=== PATIENT | female | born 1980 | race Caucasian/White ===

== ENCOUNTER → 2016-08-22 | Outpatient (CLI) | payer OTHER ==
[~2016-08-22] MED LIST: PRENTAB26 PO
[2016-08-22 18:45] LABS: URINE APPEARANCE CLEAR (CLEAR); URINE COLOR DK YELLOW; URINE EPITHELIAL CELL AUTO >30 /lpf (0-5); URINE NITRITE POS (NEG); URINE SPECIFIC GRAVITY 1.021 (1.000-1.030); UROBILINOGEN NEG (NEG)
[2016-08-22 18:48] LABS: MANUAL MICROSCOPIC REQUIRED? NO; REVIEW REQ? NO
[2016-08-22 18:50] LABS: URINE BILIRUBIN NEG (NEG)
== END | disposition home or self-care (01) ==
LOC: C.LABSPEC 17:47
PROVIDERS: ATTEND Obstetrics & Gynecology
DX: O09.523 Supervision of elderly multigravida, third trimester (principal)

== ENCOUNTER → 2016-09-03 | Outpatient (CLI) | payer OTHER ==
[2016-09-03 18:35] LABS: GTGD 50 Grams
== END | disposition home or self-care (01) ==
LOC: C.LAB1850 16:29
PROVIDERS: ATTEND Obstetrics & Gynecology
DX: O09.523 Supervision of elderly multigravida, third trimester (principal)

== ENCOUNTER → 2016-10-03 | Outpatient (CLI) | payer OTHER | END | disposition home or self-care (01) | LOC: C.LAB 09:45 | PROVIDERS: ATTEND Obstetrics & Gynecology | DX: O28.1 Abnormal biochemical finding on antenatal screening of mother (principal) ==

== ENCOUNTER 2016-11-04 05:06 | Inpatient (IN) | payer OTHER ==
[~2016-11-04] VITALS: Ht 170.2 cm; Wt 91.8 kg
[2016-11-04] MEDS ORDERED: LACTATED RINGER'S 1000ML 1,000 ML IV PRN (05:51)
[2016-11-04] MEDS ORDERED: PENICILLIN G POTASSIUM IV 6 MU in DEXTROSE 5% 250ML 250 ML IV STA (05:56)
[2016-11-04] MEDS ORDERED: PENICILLIN G POTASSIUM IV 3 MU in DEXTROSE 5% 100ML 100 ML IV PRN (06:00)
[2016-11-04] MEDS: LACTATED RINGER'S 1000ML 1,000 ML IV SCH ×2 (06:13→07:05)
[2016-11-04 06:28] VITALS: Ht 170.2 cm; Wt 91.8 kg
[2016-11-04] MEDS ORDERED: PRENTAB26 PO (06:33)
[2016-11-04 06:38] LABS: HEMATOCRIT 34.1 % (37-47); MEAN CELL VOLUME 76.8 fL (80-100); MEAN CORPUSCULAR HEMOGLOBIN 25.7 pg (25-34); MEAN CORPUSCULAR HGB CONC 33.4 g/dl (32-36); MEAN PLATELET VOLUME 11.2 fL (7.4-10.4); PLATELET COUNT 299 K/uL (130-400); RED BLOOD COUNT 4.44 M/uL (4.2-5.4); WHITE BLOOD COUNT 14.31 K/uL (4.8-10.8)
[2016-11-04] MEDS ORDERED: FENTANYL CITRATE INJ 50 MCG/1 ML 2 ML VIAL ONE (06:54)
[2016-11-04] MEDS ORDERED: BUPIVACAINE 0.25% 30 ML VIAL ONE (06:54)
[2016-11-04] MEDS ORDERED: EpHEDrine SULFATE INJ 50 MG/ML AMP ONE (06:54)
[2016-11-04] MEDS ORDERED: FENTANYL 2MCG/ML ROPIV 1.25MG/ML 100ML BAG EPI ONE (06:54)
[2016-11-04] MEDS ORDERED: LACTATED RINGER'S 1000ML 500 ML IV PRN ×2 (07:22→11:30)
[2016-11-04] MEDS ORDERED: DiphenhydrAMINE HCL 50 MG/ML VIAL IV PRN (07:30)
[2016-11-04] MEDS ORDERED: ONDANSETRON INJ 2 MG/ML 2 ML VIAL IV PRN (07:30)
[2016-11-04] MEDS ORDERED: EpHEDrine SULFATE INJ 50 MG/ML AMP IV PRN (07:30)
[2016-11-04] MEDS ORDERED: NALBUPHINE HCL INJ 10 MG/ML AMP IV PRN (07:30)
[2016-11-04] MEDS ORDERED: NALOXONE HCL INJ 0.4 MG/1 ML VIAL/CARP IV PRN (07:30)
[2016-11-04] MEDS ORDERED: FENTANYL 2MCG/ML ROPIV 1.25MG/ML 100ML BAG EPI PRN (07:30)
--- NOTE | 2016-11-04 08:15 | Medical Student: [facility] ---
Med Student History & Physical Date of Service Nov 04, 2016. Chief Complaint "My water broke" History of Present Illness Source: patient, partner, clinic records, hospital records This is a 36 year old at 38 weeks 6 days GA as established by LMP and confirmed by first trimester ultrasound, who presents following rupture of membranes and contractions starting at 3 am today. She reports no acute complaints and says that this has gone well. The only complication reported is gestational diabetes, which she has managed well with diet. She is also GBS positive, and has smoked about a half pack per day during this . She continues to report frequent movement, leakage of fluid, and contractions, but denies any bleeding. Labs: Blood type: A+, negative antibody screen HCT/HGB: 34%/11.7 g/dl Rubella: Immune VDRL/RPR: Nonreactive HBsAg: Negative HIV: Negative Chlamydia: Negative Gonorrhea: Negative 2nd trimester screen: Declined Diabetes screen: Positive GBS: Positive OB History G1: (06/25/2003) at 41 weeks GA of viable female ("Shu") weighing 7 lbs 3 oz. G2: (03/10/2010) at 41 weeks GA of viable female ("Michelle") weighing 7 lbs 3 oz. G3: Current PROJECT ADMIN History Menarche at age 11 with periods occurring every 28 days, lasting for about 5 days with heavier bleeding for the first two days and production technician bleeding for the remainder. LMP 02/06/16. Denies any history of STDs. She has had no abnormal pap smears and her last pap was 03/2016. No reported history of Gynecologic procedures or surgeries. Past Medical History Denies any past medical history prior to . Not taking any medications regularly other than vitamins. Past Surgical History Had leg surgery to reduce a fracture. No other history of surgeries. Family History Unremarkable Social History Smoking Status: Current Every Day Smoker (1/2 pack per day) Alcohol Use: none Drug Use: none Marital Status: in relationship (engaged) Housing status: lives with family, lives with significant other Occupational Status: employed Allergies Coded Allergies: No Known Allergies (Verified , 11/04/16) Home Medications Multivit/Min/Iron/Fol Ac/Pren ( Vitamin), 1 TAB PO DAILY Review of Systems Eyes: No worsening of vision Respiratory: No shortness of breath Cardiovascular: No chest pain Abdomen: No pain Physical Exam General Appearance: WD/WN, no apparent distress Respiratory/Chest: lungs clear, normal breath sounds Cardiovascular: regular rate, rhythm, no murmur Abdomen / GI: non tender, soft, + pertinent finding (gravid) Genitourinary - Female: + pertinent finding (cervix 3 cm dilated, 50% effaced, -3 station) Extremities: no calf tenderness, no pedal edema Neurologic/Psych: alert, oriented x 3 Monitoring External Monitor: baseline 140, moderate variability, accelerations present, no decels noted. Tocodynamometer: contractions every 4-6 minutes Laboratory Results 11/04/16 06:25 Test 11/04/16 06:25 11/04/16 06:28 Red Blood Count 4.44 M/uL (4.2-5.4) Mean Corpuscular Volume 76.8 fL (80-100) Mean Corpuscular Hemoglobin 25.7 pg (25-34) Mean Corpuscular Hemoglobin Concent 33.4 g/dl (32-36) RDW Standard Deviation 40.6 fL (36.4-46.3) RDW Coefficient of Variation 14.4 % (11.5-14.5) Mean Platelet Volume 11.2 fL (7.4-10.4) Bedside Glucose 102 mg/dl (70-90) Assessment and Plan 36 year old , 38 weeks 6 days GA for rupture of membranes. Tracing Category I (HR 140, moderate variability, present accelerations, absent decelerations) who is 3 cm dilated, 50% effaced and -3 station. Patient is in latent stage 1 of labor. Continue external monitoring, start IV penicillin 100 mL/hr Q4hr PRN d/t GSB positive status, epidural in place ( Bupivicaine 30 mL, ephedrine sulfate 50 mg, Fentanyl/Ropivacaine 100 ml, Fentanyl citrate 100 mcg) and continue IV lactated ringers 1000 mL @ 125 mL/hr Q8hr and 1000 mL @ 999 mL/hr Q1H1M PRN .
[2016-11-04] MEDS ORDERED: OXYTOCIN 30 UNITS/500ML NSS IV PRN ×2 (11:30→14:00)
[2016-11-04] MEDS ORDERED: HYDROCORTISONE ACETATE 25 MG SUPP PR PRN (14:00)
[2016-11-04] MEDS ORDERED: IBUPROFEN 600 MG TAB PO PRN (14:00)
[2016-11-04] MEDS ORDERED: ACETAMINOPHEN/CODEINE 300/30MG TAB PO PRN ×2 (14:00)
[2016-11-04] MEDS ORDERED: LANOLIN OINT EXT PRN ×2 (14:00)
[2016-11-04] MEDS ORDERED: BENZOCAINE 20% AER SPR 82.5 GM CAN EXT PRN (14:00)
[2016-11-04] MEDS ORDERED: SUPERCREAM 0.870 % 15GM JAR EXT PRN (14:00)
[2016-11-04 15:45] VITALS: BP 165/91; PULSE 84; TEMP 37.2
--- NOTE | 2016-11-04 16:19 | DELIVERY SUMMARY ---
DATE OF OPERATION: 11/04/2016 DATE OF DELIVERY: 11/04/2016. PREDELIVERY DIAGNOSES: 1. Intrauterine at 39 weeks. 2. Spontaneous labor with spontaneous rupture of membranes. 3. Group B strep positive. POSTDELIVERY DIAGNOSES: Same. FINDINGS: Viable female , Apgars 8 and 9, weight pending. ESTIMATED BLOOD LOSS: 300 mL. PROCEDURE: Spontaneous vaginal delivery. DESCRIPTION OF DELIVERY: The patient progressed to complete with epidural anesthesia. She began to push and spontaneously vaginally delivered a viable female in the left occiput anterior position. The head delivered followed by the anterior and then the posterior shoulder followed by the body. The baby was warmed and dried. A spontaneous cry was heard. The baby was placed on mother's abdomen and delayed cord clamping was performed. Cord was clamped at 1 minute. The cord was cut. Cord blood was obtained. The placenta was delivered spontaneously intact with a 3-vessel cord. The uterus and vagina were swept of all clots and debris. Pitocin was given and the uterus became firm. The cervix, vagina and perineum were inspected and no lacerations were noted. The mother and baby tolerated the delivery well. Sponge and instruments correct x2 at the conclusion of the delivery. I attest to the content of the Intraoperative Record and any orders documented therein. Any exceptio ns are noted below.
[2016-11-04 16:27] VITALS: BP 158/82
--- NOTE | 2016-11-04 16:48 | Anesthesia Procedure Note ---
Anesthesia Epidural Removal Nt Date & Time Nov 04, 2016 at 16:47 Vital Signs Pain Intensity: 0.0 Vital Signs Past 12 Hours Date Time Temp Pulse Resp B/P Pulse Ox O2 Delivery O2 Flow Rate FiO2 11/04/16 16:27 158/82 11/04/16 15:45 37.2 84 20 165/91 Room Air 11/04/16 15:45 Room Air Notes Mental Status: alert / awake / arousable, participated in evaluation Nausea / Vomiting: adequately controlled Pain: adequately controlled Airway Patency, RR, SpO2: stable & adequate BP & HR: stable & adequate Hydration State: stable & adequate Neuraxial Anesthesia: was administered Anesthetic Complications: no major complications apparent, pt satisfied with anesthetic care Epidural: removed without complications, with tip intact
[2016-11-04 17:00] VITALS: BP 157/82; PULSE 76; TEMP 36.9; O2SAT 98
[2016-11-04 20:00] VITALS: BP 157/82; PULSE 73; TEMP 36.9
[2016-11-04] MEDS: DOCUSATE SODIUM 100 MG CAP PO SCH (20:14)
[2016-11-04 23:15] VITALS: BP 158/89; PULSE 67; TEMP 36.5
[2016-11-05 03:35] VITALS: BP 135/81; PULSE 88; TEMP 36.8
[2016-11-05 07:41] VITALS: BP 142/82; PULSE 72; TEMP 36.6; O2SAT 96
[2016-11-05] MEDS: DOCUSATE SODIUM 100 MG CAP PO SCH ×2 (08:21→21:19)
--- NOTE | 2016-11-05 08:24 | Progress Note ---
Subjective Nov 05, 2016. Subjective conversation w/ patient, physical exam Ambulation: ambulating normally Voiding: no voiding problems Passing Gas: Yes Diet Tolerance: Regular Diet Lochia: Small Feeding Type: Breast Feeding Review of Systems Constitutional: No chills, No fever, No sweats Respiratory: No cough, No shortness of breath Cardiac: No chest pain, No claudication Objective Vital Signs Date Time Temp Pulse Resp B/P Pulse Ox O2 Delivery O2 Flow Rate FiO2 11/05/16 07:41 36.6 72 20 142/82 96 Room Air 11/05/16 03:35 36.8 88 18 135/81 Room Air 11/04/16 23:15 36.5 67 18 158/89 Room Air 11/04/16 23:15 Room Air 11/04/16 20:00 36.9 73 18 157/82 Room Air 11/04/16 17:00 36.9 76 18 157/82 98 Room Air 11/04/16 16:27 158/82 11/04/16 15:45 37.2 84 20 165/91 Room Air 11/04/16 15:45 Room Air Physical Exam General Appearance: WELL-APPEARING, NO APPARENT DISTRESS Respiratory/Chest: lungs clear, no accessory muscle use Cardiovascular: regular rate, rhythm, no murmur Fundus: Firm, Non-Tender, Relation to Umbilicus (1 cm below) Extremities: non-tender, no calf tenderness Laboratory Results Last 24 Hours Test 11/05/16 04:44 Assessment and Plan Post- Day#: 1 Continue Routine Care: s/p Day 1 - vitals reviewed and wnl - Hgb 11.4 yesterday - blood: A+, GBS+, Rubella immune - encourage ambulation, monitor lochia, and encourage breast feeding - patient doing well clinically - CONTINUE ROUTINE POST CARE Resident Physician Supervision Note: I was present with Dr. Leiva during the history and exam. I discussed the case with the resident and agree with the findings and plan as documented in the note. Any exceptions or clarifications are listed here: PPD#1 doing well, continue routine care Documented By: Lory Grossman
[2016-11-05 08:51] LABS: HEMATOCRIT 32.5 % (37-47)
[2016-11-05 12:05] VITALS: BP 142/82; PULSE 68; TEMP 36.6; O2SAT 98
[2016-11-05 12:15] VITALS: BP 138/80; PULSE 74; TEMP 37; O2SAT 98
[2016-11-05 17:00] VITALS: BP 114/75; PULSE 76; TEMP 36.8
[2016-11-05] MEDS ORDERED: BISACODYL 5 MG TABEC PO SCH (20:00)
[2016-11-05 23:30] VITALS: BP 142/86; PULSE 69; TEMP 36.5
[2016-11-06] MEDS ORDERED: BISACODYL 10 MG SUPP PR PRN (07:00)
[2016-11-06 07:20] VITALS: BP 147/86; PULSE 70; TEMP 36.6; O2SAT 96
--- NOTE | 2016-11-06 07:35 | Progress Note ---
Subjective Nov 06, 2016. Subjective conversation w/ patient, physical exam Ambulation: ambulating normally Voiding: no voiding problems Passing Gas: Yes Diet Tolerance: Regular Diet Lochia: Small Feeding Type: Breast Feeding Review of Systems Constitutional: No chills, No fever Respiratory: No cough, No shortness of breath Cardiac: No chest pain, No claudication Objective Vital Signs Date Time Temp Pulse Resp B/P Pulse Ox O2 Delivery O2 Flow Rate FiO2 11/06/16 07:20 36.6 70 18 147/86 96 Room Air 11/05/16 23:30 36.5 69 20 142/86 Room Air 11/05/16 23:30 Room Air 11/05/16 17:00 36.8 76 16 114/75 Room Air 11/05/16 17:00 Room Air 11/05/16 12:15 37.0 74 20 138/80 98 Room Air 11/05/16 12:05 36.6 68 20 142/82 98 Room Air 11/05/16 08:00 Room Air 11/05/16 07:41 36.6 72 20 142/82 96 Room Air Physical Exam General Appearance: WELL-APPEARING, NO APPARENT DISTRESS Respiratory/Chest: lungs clear, no accessory muscle use Cardiovascular: regular rate, rhythm, no murmur Fundus: Firm, Non-Tender, Relation to Umbilicus (1 cm below) Extremities: non-tender, no calf tenderness Laboratory Results Last 24 Hours Test 11/05/16 08:32 Hemoglobin 10.8 g/dL Hematocrit 32.5 % Assessment and Plan Post- Day#: 2 Continue Routine Care: s/p Day 2 - vitals reviewed and wnl - Hgb 10.8 yesterday - blood: A+, GBS+, Rubella immune - encourage ambulation, monitor lochia, and encourage breast feeding - patient doing well clinically - discharge instructions discussed with patient - PATIENT TO BE DISCHARGED TODAY Resident Physician Supervision Note: I was present with Dr. Leiva during the history and exam. I discussed the case with the resident and agree with the findings and plan as documented in the note. Any exceptions or clarifications are listed here: [None] Documented By: Yuly Torres
--- NOTE | 2016-11-06 07:36 | Discharge Instructions ---
Discharge Instructions Date of Service Nov 06, 2016. Admission Reason for Admission: LABOR Discharge Discharge Diagnosis / Problem: Spontaneous Vaginal Delivery Discharge Goals Goal(s): Routine recovery after delivery Medications Continue Dispensed Medications: supercream, dermaplast, tucks, lansinoh Activity Recommendations Activity Limitations: per Instructions/Follow-up section . Instructions / Follow-Up Instructions / Follow-Up ACTIVITY RECOMMENDATIONS: * Gradual return to full activity over the next 2-3 weeks. * No lifting - nothing heavier than baby over the next 2-3 weeks. * Do not engage in vigorous exercise, sexual activity or sports until cleared by your physician. * Do not drive or operate any motorized equipment until cleared by your physician. * You may shower/bathe daily. MEDICATIONS: For discomfort or pain, you may use Acetaminophen (Tylenol), Ibuprofen (Advil), or Naproxen (Aleve) following the package directions. For constipation you may use Colace following the package directions. BREAST CARE: If you are not breast feeding: * Wear a supportive bra 24 hours a day for one to two weeks. * Avoid stimulating your breasts and nipples as much as possible during the first few weeks after delivery. * When taking a shower, have the warm water hit your back, not breasts. * When your breasts feel full, apply ice packs. Usually three to four times a day helps ease the discomfort. * Take a mild pain medication (Tylenol / Motrin) when you are uncomfortable. If breast feeding: * Use breast milk to lubricate nipples. Lansinoh cream may be used for sore nipples. You do not need to remove cream prior to breast feeding. If using a different brand of cream, check the label for directions regarding removal of cream prior to nursing. * Wear a supportive bra. * If having problems with breasts or breast feeding, call a [facility] consultant or your health care provider. EPISIOTOMY CARE: After delivery, if you have an episiotomy (stitches), the following steps will ease discomfort and aid healing. * For the first 24 hours after delivery, place ice packs next to your episiotomy to help reduce swelling. * After the first 24 hour-period, sitz baths, either portable or in the tub, are suggested. A shower with a shower arm sprayed over the episiotomy may be comforting. * Diane care should be done after each voiding and bowel movement. Squirt warm water from a plastic bottle over the perineum (region of the body between the anus and urinary opening) and pat dry. * Use Dermoplast to ease discomfort. Shake container. Loma directly over the episiotomy. Place a Tucks on a clean sanitary pad next to your episiotomy. SPECIAL CARE INSTRUCTIONS: When you are discharged from the hospital, it is important for you to follow the instructions listed below: * During the first week at home, you should be able to care for yourself and your baby. In addition, the usual light household activities are encouraged. * Limit your activities to the way you feel. Do not try to clean the house or move furniture. Be sensible. * If you actively engage in sports and have done so up until the time of your delivery, you may resume these activities as soon as you feel able. This may take up to one month or even longer. Use good judgment. * Continue to take your vitamins for at least six weeks after the of your baby. * Your diet need not be limited unless you were on a special diet before your delivery. Breast-feeding mothers need around 2500 calories per day and at least 64-80 ounces of fluid per day (8 to 10 glasses). * You should eat foods from the four major food groups. Crash diets or fad diets are to be avoided. Eating lean meats, fresh fruits and vegetables, low-fat dairy products, high fiber foods and a regular exercise program, will help you get back to your pre- weight without putting your health at risk. * Constipation is sometimes a problem after delivery. Take a mild laxative as needed. If breast feeding, Milk of Magnesia is acceptable to use. You may use a suppository or Fleets enema if no episiotomy. * A daily shower or tub bath is suggested. Be sure to thoroughly and gently dry the perineum. * A bloody vaginal discharge will usually continue until around four weeks post . A small amount of bleeding may continue for as long as six weeks. Vaginal discharge changes from the bright red bleeding after delivery to pink then brownish and finally yellowish-pink before becoming white and disappearing. * Bleeding may increase with activity. Your first period may come in 4-8 weeks. If you are breast feeding, your period may be delayed even longer. * [place] (sex) can begin whenever both you and your partner feel comfortable and do not have any form of genital infection. It is recommended that you wait at least six weeks for internal and external healing to occur. If you have questions, please talk to your health care practitioner. A condom should be used to prevent infection and . * Foreplay, gentle intercourse and lubrication is very important the first several times to prevent pain. A water-based lubricant such as K-Y jelly or Astroglide may be used. * If you have RH negative blood and your baby is RH positive, you will receive RHOGAM by injection prior to discharge. The nurse will give you a card to keep with you that has the date and place that you received RHOGAM after delivery. * During your care, you had a Rubella screen done to check for the presence of rubella antibodies in your blood. If your test was negative, you will receive a Rubella vaccine prior to discharge. This vaccine may cause a fever, soreness at the injection site and flu-like symptoms. If these symptoms persist, notify your health care practitioner. is not advised for one month after a Rubella vaccine. * Verbalizes understanding of car seat law as reviewed with patient nursing. * Car Seat hand-out given and reviewed with patient by nursing. * Shaken baby information reviewed with patient by nursing. Call you doctor if: * Heavy bleeding (saturating several pads an hour) or passing clots the size of your fist. * A fever >101 degrees F (38.3 degrees C) on two occasions four hours apart and /or chills. * Unusual pain in the pelvic or vaginal areas. * "Baby Blues" lasting longer than two weeks. If you have any questions or concerns, call your health care practitioner at . FOLLOW UP VISIT: * Please call the office at to schedule a 6 week examination. It is important you keep this appointment. It is important for you to make arrangements for either yearly or twice yearly check-ups thereafter. Current Hospital Diet Patient's current hospital diet: Regular OB Diet Discharge Diet Recommended Diet: Regular Diet Pending Studies Studies pending at discharge: no Medical Emergencies . Who to Call and When: Medical Emergencies: If at any time you feel your situation is an emergency, please call 911 immediately. . Non-Emergent Contact Non-Emergency issues call your: Primary Care Provider, Director Public Policy . . "Provider Documentation" section prepared by Ford Leiva. VTE Core Measure Inpt VTE Proph given/why not?: Treatment not indicated
[2016-11-06] MEDS: DOCUSATE SODIUM 100 MG CAP PO SCH (07:49)
[2016-11-06 10:44] VITALS: BP_DIAS 86; PULSE 70; TEMP 36.6
== END 2016-11-06 11:05 | disposition home or self-care (01) | DRG 775 ==
LOC: C.LD 05:06 → C.OPB 05:06 → C.LD 05:54 → C.OBG 15:41
PROVIDERS: ADMIT Obstetrics & Gynecology; ATTEND Obstetrics & Gynecology
PROC: 10E0XZZ Delivery of Products of Conception, External Approach (ICD-10-PCS; principal; 2016-11-04)
DX: O42.02 Full-term premature rupture of membranes, onset of labor within 24 hours of rupture (principal); Z37.0 Single live birth; O99.824 Streptococcus B carrier state complicating childbirth; O26.893 Other specified pregnancy related conditions, third trimester; O24.420 Gestational diabetes mellitus in childbirth, diet controlled; O99.334 Smoking (tobacco) complicating childbirth; F17.210 Nicotine dependence, cigarettes, uncomplicated; Z3A.39 39 weeks gestation of pregnancy

== ENCOUNTER → 2017-12-07 | Outpatient (CLI) | payer OTHER | END | disposition home or self-care (01) | LOC: C.PAPS 14:43 | PROVIDERS: ATTEND Obstetrics & Gynecology | DX: O09.511 Supervision of elderly primigravida, first trimester (principal) ==

== ENCOUNTER → 2017-12-08 | Outpatient (CLI) | payer OTHER | END | disposition home or self-care (01) | LOC: C.LABSPEC 14:38 | PROVIDERS: ATTEND Obstetrics & Gynecology | DX: O09.511 Supervision of elderly primigravida, first trimester (principal) ==